=== PATIENT | female | born 1945 | race Caucasian/White ===

== ENCOUNTER 2018-09-15 10:00 | Inpatient (IN) ==
[2018-09-15] MEDS ORDERED: Sennosides/Docusate Sodium TABLET PO PRN (16:26)
[2018-09-15] MEDS ORDERED: traMADol 50 MG TABLET PO PRN ×2 (16:32)
[2018-09-15] MEDS: Ondansetron ODT 4 MG TAB.RAPDIS SL PRN (17:59)
[2018-09-15] MEDS: Aspirin 81 MG TAB.CHEW PO SCH (20:49)
[2018-09-15] MEDS: Famotidine 20 MG TABLET PO SCH (20:49)
[2018-09-16 06:11] LABS: Basophils % 0.2 %; Eosinophils # 0.1 K/mcL (0.0-0.6); Eosinophils % 0.5 %; Hematocrit 39.5 % (35.3-44.9); Immature Granulocytes % 0.4 % (0-4); Lymphocytes # 1.4 K/mcL (0.6-4.6); Lymphocytes % 12.7 %; Mean Corpuscular HGB Conc 32.9 g/dL (31.6-35.5); Mean Corpuscular Hemoglobin 31.2 pg (28.0-33.3); Mean Corpuscular Volume 94.7 fL (83.0-100.0); Mean Platelet Volume 12.8 fL (9.4-12.4); Monocytes # 0.9 K/mcL (0.0-1.3); Monocytes % 8.6 %; Neutrophils # 8.3 K/mcL (1.6-8.9); Platelet Count 176 K/mcL (140-400); Red Blood Count 4.17 M/mcL (3.82-4.97); Red Cell Distribution Width 14.3 % (11.5-14.5); Segmented Neutrophils % 77.6 %; White Blood Count 10.7 K/mcL (4.3-11.1)
[2018-09-16 06:22] LABS: INR 1.1; Prothrombin Time 12.2 Seconds (9.4-12.1)
[2018-09-16 06:25] LABS: Activated Partial Thrombo Time 31.3 Seconds (26.0-36.0)
[2018-09-16 06:34] LABS: Calcium 8.5 mg/dL (8.6-10.3)
[2018-09-16] MEDS: Cholecalciferol (D-3) 1,000 UNIT (25MCG) TABLET PO SCH (08:52)
[2018-09-16] MEDS: Lactobacillus 1 EACH CAP.SPRINK PO SCH (08:52)
[2018-09-16] MEDS: Multivit/Ca/Min/Fe/FA 1 TAB TABLET PO SCH (08:53)
[2018-09-16] MEDS: (Omega-3/Dha/Epa/Fish Oil [Fish Oil 1,000 Mg Softgel]) PO SCH (08:56)
[2018-09-16] MEDS: Aspirin 81 MG TAB.CHEW PO SCH ×2 (08:56→20:31)
[2018-09-16] MEDS ORDERED: Lisinopril 20 MG TABLET PO SCH (09:00)
--- NOTE | 2018-09-16 11:48 | Internal Med History&Physical ---
Date of Encounter: 09/16/18 Time of Encounter: 10:30 Assessment and Plan (1) Status post total right knee replacement Current visit: Yes Status: Acute She will be treated with therapy and follow with probable early discharge, depending on her progress. We will use Lovenox for DVT prophylaxis. (2) Hypertension Current visit: No Status: Acute Controlled with current regimen. Will follow. Qualifiers: Hypertension type: essential hypertension Qualified Code(s): I10 - Essential (primary) hypertension (3) Hypothyroidism Current visit: No Status: Acute Clinically euthyroid. We will continue current regimen. 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 Qualifiers: Hyperlipidemia type: unspecified Qualified Code(s): E78.5 - Hyperlipidemia, unspecified (5) Constipation Current visit: No Status: Acute This apparently resolved with milk of magnesia and will continue MiraLAX as needed. He has also been placed on senna. Qualifiers: Constipation type: slow transit constipation Qualified Code(s): K59.01 - Slow transit constipation (6) Nausea Current visit: Yes Status: Acute We will follow and she has Ultram available but prefers to use only Tylenol. She also has as needed ondansetron. (7) CVA (cerebral vascular accident) Current visit: No Status: Acute Apparently all resolved and patient has no residual. Qualifiers: CVA mechanism: occlusion Precerebral and cerebral artery: anterior cerebral artery Laterality of affected vessel: left Qualified Code(s): I63.522 - Cerebral infarction due to unspecified occlusion or stenosis of left anterior cerebral artery Internal Medicine - H&P: HPI Admitted From: Hospital to Hospital Transfer Plans for Post Hospital Care: Home History of present illness: Ms. Aguirre is a 73 year old female with history of right total knee replacement [address] Pelayo. She did well postoperatively with the exception of nausea and vomiting. She states this was from opiates which she frequently gets after anesthesia or after surgery. She has been doing fine on Tylenol feels that her pain at worst is 4 out of 10. She also had constipation which resolved yesterday. She denies fevers, chills, sweats, dizziness, lightheadedness, etc. Medical history reviewed and no acute issues. Includes history of left CVA with right hemiparesis 2017 but this all resolved. She also has hypertension, GERD, hyperlipidemia, hypertension, hypothyroidism. Past Med Surg Social Fam HX - Past Medical History Medical history: arthritis, CVA, GERD, hyperlipidemia, hypertension, thyroid disease Psychiatric history: no psych history - Past Surgical History Surgical History: hysterectomy, orthopedic, other, other Additional surgical history: wrist. cyst removal - Social History Smoking Status: Never smoker Smokeless Tobacco Status: No Alcohol use: none Drug use: none - Family History Mother Hx Family Cardiac Disorders: Yes (htn) Hx Family Neurologic Disorders: Yes (alzheimers disease) Father Hx Family Cardiac Disorders: Yes (HTN) Hx Family Neurologic Disorders: Yes (Alzheimers disease) Internal Medicine - H&P: Meds Aspirin [Lo-Dose Aspirin EC] 81 mg PO DAILY 03/01/17 [History] Levothyroxine [Synthroid] 50 mcg PO DAILY 03/01/17 [History] Lisinopril [Zestril] 20 mg PO DAILY 03/01/17 [History] Mv,Fe,Min/Lutein [A Thru Z [employer] Tablet] 1 tab PO DAILY 03/01/17 [History] Nadolol [Corgard] 40 mg PO DAILY 03/01/17 [History] [place]-3/Dha/Epa/Fish Oil [Fish Oil 1,000 mg Softgel] 1 cap PO DAILY 03/01/17 [History] Ranitidine HCl [Zantac] 150 mg PO HS 03/01/17 [History] Atorvastatin [Lipitor] 40 mg PO HS #30 tablet 03/04/17 [Rx] Sennosides/Docusate Sodium [Senna Plus] 1 each PO DAILY PRN #30 tablet 03/04/17 [Rx] Ibuprofen [Motrin] 800 mg PO Q8HR #30 tablet 11/16/17 [Rx] Magnesium 11/16/17 [History] Cholecalciferol (D-3) [Vitamin D] 1,000 unit PO DAILY 09/15/18 [History] L.acidoph,Paracasei, B.lactis [Probiotic] 1 each PO DAILY 09/15/18 [History] Multivit-Min/FA/Lutein/Zeaxant [Macular Vitamin Tablet] 1 each PO DAILY 09/15/18 [History] Non-Formulary Medication 1 each PO DAILY 09/15/18 [History] Allergy/AdvReac Type Severity Reaction Status Date / Time codeine Allergy See Verified 01/27/18 16:57 Comments All Systems PM: A 10-system review of systems was performed and is negative for pertinent findings except as documented above in the HPI. Review of systems: Patient has no complaint of chest discomfort, dyspnea, orthopnea, breathing problems, palpitations, nausea or vomiting, constipation or diarrhea, other changes in bowel habits, heartburn, difficulty with urination, kidney problems or kidney stones, fevers chills or sweats, rash or itching, seizures, headache or lightheadedness, heat or cold intolerance, blood problems or anemia, or other new complaints, except as mentioned above. Review of systems is otherwise negative. - Constitutional Vitals: Temp Pulse Resp BP Pulse Ox 98.6 F 80 16 94/69 96 09/16/18 08:00 09/16/18 08:00 09/16/18 08:00 09/16/18 08:00 09/16/18 08:00 Exam: Examination: (Except as mentioned above): General: In no apparent distress, alert and oriented 3. Head: Atraumatic and normocephalic. Eyes: Extraocular muscles are intact, pupils equal round and reactive to light and accommodation. Sclerae anicteric. Ears: External ears are normal to inspection and hearing is grossly normal. Nose: Patent without lesion noted. Mouth: No intraoral lesions seen. Dentition is unremarkable. Neck: Supple with trachea midline. There is no thyromegaly or adenopathy and carotids are 2+ without bruit heard. Respiratory: No use of accessory muscles. Lungs are clear throughout. Normal airflow. Cardiovascular: Regular rate and rhythm without murmur appreciated. Abdomen: Bowel sounds are normal. No hepatosplenomegaly masses or tenderness. Obese and therefore difficult to palpate deeply. Extremities: No cyanosis clubbing or significant edema. She has mild edema of the right lower extremity from the knee downward but nearly none at foot. There is no cord or calf tenderness. Neurological: A and O 3. Cranial nerves II through XII are intact. No focal deficits and no abnormal movements or postures. Skin: Warm and non-diaphoretic with no lesions noted. Breasts, pelvic and rectal: Not examined. Internal Med - H&P Results - Labs CBC & Chem 7: 09/16/18 05:35 09/16/18 05:35 Labs: Short CBC 09/16/18 Range/Units 05:35 WBC 10.7 (4.3-11.1) K/mcL Hgb 13.0 (11.5-15.4) g/dL Hct 39.5 (35.3-44.9) % Plt Count 176 (140-400) K/mcL Neutrophils # 8.3 (1.6-8.9) K/mcL BMP 09/16/18 05:35 Sodium 133 L Potassium 4.0 Chloride 98 Carbon Dioxide 29 BUN 27 H Creatinine 1.24 H Glucose 113 H Calcium 8.5 L
[2018-09-16] MEDS: *HR* Enoxaparin 30 MG/0.3 ML SYRINGE SQ SCH (12:58)
[2018-09-16] MEDS: Famotidine 20 MG TABLET PO SCH (20:32)
[2018-09-17 05:30] LABS: Basophils % 0.3 %; Eosinophils # 0.3 K/mcL (0.0-0.6); Eosinophils % 3.3 %; Hematocrit 35.9 % (35.3-44.9); Hemoglobin 11.9 g/dL (11.5-15.4); Immature Granulocytes % 1.3 % (0-4); Lymphocytes # 1.5 K/mcL (0.6-4.6); Lymphocytes % 14.5 %; Mean Corpuscular HGB Conc 33.1 g/dL (31.6-35.5); Mean Corpuscular Hemoglobin 31.2 pg (28.0-33.3); Mean Platelet Volume 12.2 fL (9.4-12.4); Monocytes # 1.2 K/mcL (0.0-1.3); Monocytes % 11.2 %; Neutrophils # 7.2 K/mcL (1.6-8.9); Platelet Count 195 K/mcL (140-400); Red Blood Count 3.82 M/mcL (3.82-4.97); Red Cell Distribution Width 14.3 % (11.5-14.5); Segmented Neutrophils % 69.4 %; White Blood Count 10.3 K/mcL (4.3-11.1)
[2018-09-17 05:45] LABS: Calcium 8.5 mg/dL (8.6-10.3); Potassium 3.6 mEq/L (3.5-5.1)
[2018-09-17 05:48] LABS: Magnesium 2.4 mg/dL (1.6-2.6)
[2018-09-17 05:59] LABS: Thyroid Stimulating Hormone 5.574 mcIU/mL (0.340-5.600)
[2018-09-17] MEDS: Ondansetron ODT 4 MG TAB.RAPDIS SL PRN (07:41)
[2018-09-17] MEDS: Aspirin 81 MG TAB.CHEW PO SCH ×2 (08:28→20:20)
[2018-09-17] MEDS: Lactobacillus 1 EACH CAP.SPRINK PO SCH (08:28)
[2018-09-17] MEDS: Multivit/Ca/Min/Fe/FA 1 TAB TABLET PO SCH (08:28)
[2018-09-17] MEDS: Lisinopril 20 MG TABLET PO SCH (08:28)
[2018-09-17] MEDS: Cholecalciferol (D-3) 1,000 UNIT (25MCG) TABLET PO SCH (08:28)
[2018-09-17] MEDS: *HR* Enoxaparin 30 MG/0.3 ML SYRINGE SQ SCH (08:28)
[2018-09-17] MEDS: (Omega-3/Dha/Epa/Fish Oil [Fish Oil 1,000 Mg Softgel]) PO SCH (08:30)
--- NOTE | 2018-09-17 15:07 | Internal Med Progress Note ---
Date of Encounter: 09/17/18 Time of Encounter: 15:07 - Assessment and plan (1) Status post total right knee replacement Current Visit: Yes Status: Acute Assessment and plan: She is continuing to do well. Overall, improvement in terms of symptoms. She will therapies after the holiday weekend. (2) Hypertension Current Visit: No Status: Acute Assessment and plan: Controlled and will continue current regimen. Qualifiers: Hypertension type: essential hypertension Qualified Code(s): I10 - Essential (primary) hypertension (3) Hypothyroidism Current Visit: No Status: Acute Assessment and plan: Clinically stable. 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 Qualifiers: Hyperlipidemia type: unspecified Qualified Code(s): E78.5 - Hyperlipidemia, unspecified (5) Constipation Current Visit: No Status: Acute Assessment and plan: Responding to laxatives, as above. Qualifiers: Constipation type: slow transit constipation Qualified Code(s): K59.01 - Slow transit constipation (6) Nausea Current Visit: Yes Status: Acute Assessment and plan: Improving but persistent. (7) CVA (cerebral vascular accident) Current Visit: No Status: Acute Assessment and plan: No new residual. Qualifiers: CVA mechanism: occlusion Precerebral and cerebral artery: anterior cerebral artery Laterality of affected vessel: left Qualified Code(s): I63.522 - Cerebral infarction due to unspecified occlusion or stenosis of left anterior cerebral artery - Subjective Interval history: Patient had some dizziness this morning but no fall or other localizing signs. She had nausea associated but this resolved with time. Vital signs except. She continues to have bowel problems this is improving, per nursing. She had no bowel movement in a laxative made her have loose stools. Patient has no complaint of chest discomfort, dyspnea, orthopnea, palpitations, nausea or vomiting, constipation or diarrhea, other changes in bowel habits, difficulty with urination, rash or itching, or other new complaints, except as mentioned above. Review of systems is otherwise negative. I discussed management of patient's care with nursing staff. - Constitutional Vitals: Temp Pulse Resp BP Pulse Ox 97.7 F 63 16 143/81 97 09/17/18 08:55 09/17/18 08:55 09/17/18 08:55 09/17/18 08:55 09/17/18 08:55 Exam: Examination: (Except as mentioned above): General: In no apparent distress. Alert and oriented 3. Nondiaphoretic. Head: Atraumatic and normocephalic. Respiratory: No use of accessory muscles. Lungs are clear throughout. Normal airflow. Cardiovascular: Regular rate and rhythm without murmur appreciated. Abdomen: Bowel sounds are normal. No hepatosplenomegaly mass or tenderness appreciated. Obese and therefore difficult to palpate deeply. Extremities: No cyanosis clubbing or edema. Skin: Warm and non-diaphoretic with no new lesions noted. Internal Medicine: Result - Labs CBC & Chem 7: 09/17/18 05:00 09/17/18 05:00 Labs: Short CBC 09/17/18 Range/Units 05:00 WBC 10.3 (4.3-11.1) K/mcL Hgb 11.9 (11.5-15.4) g/dL Hct 35.9 (35.3-44.9) % Plt Count 195 (140-400) K/mcL Neutrophils # 7.2 (1.6-8.9) K/mcL BMP 09/17/18 05:00 Sodium 132 L Potassium 3.6 Chloride 100 Carbon Dioxide 27 BUN 30 H Creatinine 1.13 Glucose 98 Calcium 8.5 L - ABG Interpretation ABG results: PT/INR, D-dimer PT 12.2 Seconds (9.4-12.1) H 09/16/18 05:35 Consult Discharge Plan - Plan Referrals: Uyen Rodriguez CNP [Primary Care Provider] -
[2018-09-17] MEDS: Famotidine 20 MG TABLET PO SCH (20:20)
[2018-09-18] MEDS: (Omega-3/Dha/Epa/Fish Oil [Fish Oil 1,000 Mg Softgel]) PO SCH (09:07)
[2018-09-18] MEDS: Lactobacillus 1 EACH CAP.SPRINK PO SCH (09:08)
[2018-09-18] MEDS: *HR* Enoxaparin 40 MG/0.4 ML SYRINGE SQ SCH (09:08)
[2018-09-18] MEDS: Lisinopril 20 MG TABLET PO SCH (09:09)
[2018-09-18] MEDS: Cholecalciferol (D-3) 1,000 UNIT (25MCG) TABLET PO SCH (09:09)
[2018-09-18] MEDS: Aspirin 81 MG TAB.CHEW PO SCH ×2 (09:09→20:37)
[2018-09-18] MEDS: Multivit/Ca/Min/Fe/FA 1 TAB TABLET PO SCH (09:09)
--- NOTE | 2018-09-18 12:17 | Internal Med Progress Note ---
Date of Encounter: 09/18/18 Time of Encounter: 12:15 - Assessment and plan (1) Status post total right knee replacement Current Visit: Yes Status: Acute Assessment and plan: We will continue as planned with therapies to resume tomorrow. (2) Hypertension Current Visit: No Status: Acute Assessment and plan: Control was adequate. We will continue current regimen. Qualifiers: Hypertension type: essential hypertension Qualified Code(s): I10 - Essential (primary) hypertension (3) Hypothyroidism Current Visit: No Status: Acute Assessment and plan: Clinically euthyroid on replacement. 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 Qualifiers: Constipation type: slow transit constipation Qualified Code(s): K59.01 - Slow transit constipation (6) Nausea Current Visit: Yes Status: Acute Assessment and plan: Improving. (7) CVA (cerebral vascular accident) Current Visit: No Status: Acute Assessment and plan: Remote without signs or symptoms. Qualifiers: CVA mechanism: occlusion Precerebral and cerebral artery: anterior cerebral artery Laterality of affected vessel: left Qualified Code(s): I63.522 - Cerebral infarction due to unspecified occlusion or stenosis of left anterior cerebral artery - Subjective Interval history: Patient is without problems except she has "still not had a bowel movement." She states that she has white liquid and when we discussed, she feels that she still is to have a bowel movement. I offered a fleets enema but she declined, at this time. Patient had an episode of falling or slightly last night. She had no injury and is doing fine, otherwise. She has minimal nausea. Patient has no complaint of chest discomfort, dyspnea, orthopnea, palpitations, nausea or vomiting, constipation or diarrhea, other changes in bowel habits, difficulty with urination, rash or itching, or other new complaints, except as mentioned above. Review of systems is otherwise negative. I discussed management of patient's care with nursing staff. - Constitutional Vitals: Temp Pulse Resp BP Pulse Ox 97.6 F 70 16 118/76 97 09/18/18 07:11 09/18/18 07:11 09/18/18 07:11 09/18/18 07:11 09/18/18 07:11 Exam: Examination: (Except as mentioned above): General: In no apparent distress. Alert and oriented 3. Nondiaphoretic. Head: Atraumatic and normocephalic. Respiratory: No use of accessory muscles. Lungs are clear throughout. Normal airflow. Cardiovascular: Regular rate and rhythm without murmur appreciated. Abdomen: Bowel sounds are normal. No hepatosplenomegaly mass or tenderness appreciated. Obese and therefore difficult to palpate deeply. Patient is examined upright in chair and this also limits exam. Extremities: No cyanosis clubbing or edema. Skin: Warm and non-diaphoretic with no new lesions noted. Internal Medicine: Result - Labs CBC & Chem 7: 09/17/18 05:00 09/17/18 05:00 - ABG Interpretation ABG results: PT/INR, D-dimer PT 12.2 Seconds (9.4-12.1) H 09/16/18 05:35 Consult Discharge Plan - Plan Referrals: Michael,Uyen Coley CNP [Primary Care Provider] -
[2018-09-18] MEDS: Famotidine 20 MG TABLET PO SCH (20:37)
[2018-09-19] MEDS: Aspirin 81 MG TAB.CHEW PO SCH ×2 (08:03→21:46)
[2018-09-19] MEDS: Lisinopril 20 MG TABLET PO SCH (08:03)
[2018-09-19] MEDS: *HR* Enoxaparin 40 MG/0.4 ML SYRINGE SQ SCH (08:03)
[2018-09-19] MEDS: Cholecalciferol (D-3) 1,000 UNIT (25MCG) TABLET PO SCH (08:03)
[2018-09-19] MEDS: Lactobacillus 1 EACH CAP.SPRINK PO SCH (08:03)
[2018-09-19] MEDS: Multivit/Ca/Min/Fe/FA 1 TAB TABLET PO SCH (08:03)
[2018-09-19] MEDS: (Omega-3/Dha/Epa/Fish Oil [Fish Oil 1,000 Mg Softgel]) PO SCH (08:04)
--- NOTE | 2018-09-19 11:20 | Internal Med Progress Note ---
Date of Encounter: 09/19/18 Time of Encounter: 11:18 - Assessment and plan (1) Status post total right knee replacement Current Visit: Yes Status: Acute Assessment and plan: No acute issues. Surgical incision to right knee appears healthy. Patient with moderate pain, which she states is tolerable with current medications. Patient trying to avoid any use of narcotics at this time, stating that she does not tolerate them well. We will continue with continuous icing. We will continue with physical therapy which she states is progressing well. (2) CVA (cerebral vascular accident) Current Visit: Yes Status: Acute Assessment and plan: No acute issues. Patient shows no neurological deficits on exam. Remote CVA. We will continue with physical therapy and current plan of care. Qualifiers: CVA mechanism: occlusion Precerebral and cerebral artery: anterior cerebral artery Laterality of affected vessel: left Qualified Code(s): I63.522 - Cerebral infarction due to unspecified occlusion or stenosis of left anterior cerebral artery (3) Nausea Current Visit: Yes Status: Acute Assessment and plan: Patient currently denies any nausea. Continue with when necessary coverage. (4) Constipation Current Visit: No Status: Acute Assessment and plan: Patient states she continues with constipation. Patient has resisted taking several laxatives, stating that when she was at her previous hospitalization that she had taken milk of magnesia with an apple juice and had developed diarrhea. Patient has had several days of no BM at this time. We will give patient a half a bottle of mag citrate and monitor results. Qualifiers: Constipation type: slow transit constipation Qualified Code(s): K59.01 - Slow transit constipation - Time Spent With Patient less than 15 minutes - Subjective Interval history: Patient appears relaxed and currently states that she has slight pain to her right knee surgical site, which she states is tolerable with current medications. Patient states she is unable to take most narcotics and currently just prefers Tylenol, which she feels is effective. Patient with continuous icing also in use. States that she feels physical therapy is progressing well. - Constitutional Vitals: Temp Pulse Resp BP Pulse Ox 98.1 F 79 18 140/88 96 09/19/18 07:36 09/19/18 07:36 09/19/18 07:36 09/19/18 07:36 09/19/18 07:36 General appearance: Present: A&O X 3, pleasant - Head Head exam: Present: atraumatic, normocephalic - Eye Eye exam: Present: PERRL, conjuntiva pink, sclera anicteric Pupils: Present: PERRL - Neck Neck exam general surgery: Present: supple, trachea midline. Absent: lymphadenopathy - Respiratory Respiratory exam: Present: CTAB. Absent: accessory muscle use, rales, rhonchi, wheezes - Cardiovascular Cardiovascular exam: Present: RRR, +S1, +S2. Absent: diastolic murmur, gallop, rubs, systolic murmur - GI/Abdominal GI/Abdominal exam: Present: normal bowel sounds, soft, no peritoneal signs. Absent: distended, tenderness - Extremities Exam Extremities exam: Present: warm, radial pulses palpable and symmetrical. Absent: calf tenderness, cyanotic, pedal edema Additional comments: Right knee surgical incision appears healthy with no ecchymosis or erythema. - Neurological Exam Neurological exam: Present: CN II-XII intact, oriented X3, no focal deficits. Absent: pronater drift, facial droop, speech deficit - Skin Skin exam: Present: dry, intact Internal Medicine: Result - Labs CBC & Chem 7: 09/17/18 05:00 09/17/18 05:00 - ABG Interpretation ABG results: PT/INR, D-dimer PT 12.2 Seconds (9.4-12.1) H 09/16/18 05:35 Consult Discharge Plan - Plan Referrals: Uyen Rodriguez CNP [Primary Care Provider] -
[2018-09-19] MEDS: Famotidine 20 MG TABLET PO SCH (21:46)
[2018-09-20] MEDS: Aspirin 81 MG TAB.CHEW PO SCH ×2 (08:53→21:33)
[2018-09-20] MEDS: Lactobacillus 1 EACH CAP.SPRINK PO SCH (08:55)
[2018-09-20] MEDS: Multivit/Ca/Min/Fe/FA 1 TAB TABLET PO SCH (08:55)
[2018-09-20] MEDS: Cholecalciferol (D-3) 1,000 UNIT (25MCG) TABLET PO SCH (08:55)
[2018-09-20] MEDS: *HR* Enoxaparin 40 MG/0.4 ML SYRINGE SQ SCH (08:56)
[2018-09-20] MEDS: Lisinopril 20 MG TABLET PO SCH (08:58)
[2018-09-20] MEDS: (Omega-3/Dha/Epa/Fish Oil [Fish Oil 1,000 Mg Softgel]) PO SCH (08:59)
--- NOTE | 2018-09-20 13:40 | Internal Med Progress Note ---
Date of Encounter: 09/20/18 Time of Encounter: 10:50 - Assessment and plan (1) Status post total right knee replacement Current Visit: Yes Status: Acute Assessment and plan: Patient is continuing to progress well (2) Hypertension Current Visit: No Status: Acute Assessment and plan: Clinically stable so will continue current regimen. Qualifiers: Hypertension type: essential hypertension Qualified Code(s): I10 - Essential (primary) hypertension (3) Hypothyroidism Current Visit: No Status: Acute Assessment and plan: Clinically euthyroid. 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 Qualifiers: Hyperlipidemia type: unspecified Qualified Code(s): E78.5 - Hyperlipidemia, unspecified (5) Constipation Current Visit: No Status: Acute Assessment and plan: Improved after magnesium citrate. Qualifiers: Constipation type: slow transit constipation Qualified Code(s): K59.01 - Slow transit constipation (6) Nausea Current Visit: Yes Status: Acute Assessment and plan: Improving. (7) CVA (cerebral vascular accident) Current Visit: Yes Status: Acute Assessment and plan: Remote without any new deficits. Qualifiers: CVA mechanism: occlusion Precerebral and cerebral artery: anterior cerebral artery Laterality of affected vessel: left Qualified Code(s): I63.522 - Cerebral infarction due to unspecified occlusion or stenosis of left anterior cerebral artery - Subjective Interval history: Patient is without complaint. She had a large bowel movement on multiple occasions. She is progressing well with therapy. Patient has no complaint of chest discomfort, dyspnea, orthopnea, palpitations, nausea or vomiting, constipation or diarrhea, other changes in bowel habits, difficulty with urination, rash or itching, or other new complaints, except as mentioned above. Review of systems is otherwise negative. I discussed management of patient's care with nursing staff. - Constitutional Vitals: Temp Pulse Resp BP Pulse Ox 97.6 F 78 18 107/68 100 09/20/18 09:07 09/20/18 09:07 09/20/18 09:07 09/20/18 09:07 09/20/18 09:07 Exam: Examination: (Except as mentioned above): General: In no apparent distress. Alert and oriented 3. Nondiaphoretic. Head: Atraumatic and normocephalic. Respiratory: No use of accessory muscles. Lungs are clear throughout. Normal airflow. Cardiovascular: Regular rate and rhythm without murmur appreciated. Abdomen: Bowel sounds are normal. No hepatosplenomegaly mass or tenderness appreciated. Obese and therefore difficult to palpate deeply. Extremities: No cyanosis clubbing or edema. Skin: Warm and non-diaphoretic with no new lesions noted. Internal Medicine: Result - Labs CBC & Chem 7: 09/17/18 05:00 09/17/18 05:00 - ABG Interpretation ABG results: PT/INR, D-dimer PT 12.2 Seconds (9.4-12.1) H 09/16/18 05:35 Consult Discharge Plan - Plan Referrals: Uyen Rodriguez CNP [Primary Care Provider] -
[2018-09-20] MEDS: Famotidine 20 MG TABLET PO SCH (21:33)
[2018-09-21 07:34] VITALS: BP 129/83
[2018-09-21] MEDS: Aspirin 81 MG TAB.CHEW PO SCH (08:55)
[2018-09-21] MEDS: Multivit/Ca/Min/Fe/FA 1 TAB TABLET PO SCH (08:56)
[2018-09-21] MEDS: (Omega-3/Dha/Epa/Fish Oil [Fish Oil 1,000 Mg Softgel]) PO SCH (08:56)
[2018-09-21] MEDS: *HR* Enoxaparin 40 MG/0.4 ML SYRINGE SQ SCH (08:56)
[2018-09-21] MEDS: Lactobacillus 1 EACH CAP.SPRINK PO SCH (08:56)
[2018-09-21] MEDS: Lisinopril 20 MG TABLET PO SCH (08:56)
[2018-09-21] MEDS: Cholecalciferol (D-3) 1,000 UNIT (25MCG) TABLET PO SCH (08:56)
--- NOTE | 2018-09-21 10:40 | Discharge Summary ---
Date of Encounter: 09/21/18 Time of Encounter: 10:35 - Discharge Diagnosis (1) Status post total right knee replacement Priority: Primary Status: Acute Comments: Right knee surgical incision appears healthy and intact. No edema noted. Patient continues with icing. Patient with history of intolerance to opiates, but states that her pain has been controlled with current nonnarcotic medication. Patient will continue her physical therapy as an outpatient here at [facility]. Patient being discharged with prescriptions from orthopedic surgeon for tramadol and is continuing on aspirin. Patient is continue follow-up with orthopedic surgeon and PCP after discharge (2) CVA (cerebral vascular accident) Priority: Secondary Status: Acute Comments: No acute issues are stated this facility. Patient shows no residual from previous CVA. Patient has continue follow-up with PCP and continue on her current medications. Qualifiers: CVA mechanism: occlusion Precerebral and cerebral artery: anterior cerebral artery Laterality of affected vessel: left Qualified Code(s): I63.522 - Cerebral infarction due to unspecified occlusion or stenosis of left anterior cerebral artery (3) Nausea Priority: Secondary Status: Acute Comments: Patient's nausea resolved soon after arrival to facility. No current issues. Patient is being discharged with a prescription for Zofran when necessary. Follow-up with PCP after discharge (4) Constipation Priority: Secondary Status: Acute Comments: Patient with history of constipation and did have some issues postoperatively. Patient currently has had recent BM and is being discharged on current medications to continue at home. Patient has a follow-up PCP. Qualifiers: Constipation type: slow transit constipation Qualified Code(s): K59.01 - Slow transit constipation Hospital course: Ms. Aguirre is a 73 year old female with a right total knee replacement last week by Dr. Pelayo. She did well postoperatively with the exception of nausea and vomiting. She states this was from opiates which she frequently experiences nausea after anesthesia or when taking opiates. She has been doing fine on Tylenol feels that her pain at worst is 4 out of 10. She had experienced constipation postoperatively which has resolved by discharge . She denies fevers, chills, sweats, dizziness, lightheadedness, etc. patient has participated in physical therapy and done well. Continues with continuous icing on her left knee. Patient is being discharged to home and is continue with physical therapy to outpatient services here at [facility]. Patient is a continue her follow-up with PCP and orthopedic surgeon. Patient is being discharged with a prescription for tramadol and Zofran. She is continue on aspirin. Medical history reviewed and no acute issues. Includes history of left CVA with right hemiparesis 2017 but this all resolved. She also has hypertension, GERD, hyperlipidemia, hypertension, hypothyroidism. Discharge discussed with: patient Time spent discussing smoking cessation with patient: 3 to 10 minutes - Time Spent with Patient Total time spent providing and/or coordinating discharge services: Time spent: Less than 30 minutes - Discharge Medications Prescriptions: No Action Mv,Fe,Min/Lutein [A Thru Z [employer]'s Tablet] 1 tab PO DAILY Nadolol [Corgard] 40 mg PO DAILY Aspirin [Lo-Dose Aspirin EC] 81 mg PO DAILY Ranitidine HCl [Zantac] 150 mg PO HS Lisinopril [Zestril] 20 mg PO DAILY Levothyroxine [Synthroid] 50 mcg PO DAILY Easley-3/Dha/Epa/Fish Oil [Fish Oil 1,000 mg Softgel] 1 cap PO DAILY Atorvastatin [Lipitor] 40 mg PO HS #30 tablet Sennosides/Docusate Sodium [Senna Plus] 1 each PO DAILY PRN #30 tablet PRN Reason: Constipation Magnesium Ibuprofen [Motrin] 800 mg PO Q8HR #30 tablet Cholecalciferol (D-3) [Vitamin D] 1,000 unit PO DAILY Non-Formulary Medication 1 each PO DAILY Multivit-Min/FA/Lutein/Zeaxant [Macular Vitamin Tablet] 1 each PO DAILY L.acidoph,Paracasei, B.lactis [Probiotic] 1 each PO DAILY Home Medications: Aspirin [Lo-Dose Aspirin EC] 81 mg PO DAILY 03/01/17 [History] Levothyroxine [Synthroid] 50 mcg PO DAILY 03/01/17 [History] Lisinopril [Zestril] 20 mg PO DAILY 03/01/17 [History] Mv,Fe,Min/Lutein [A Thru Z [employer]'s Tablet] 1 tab PO DAILY 03/01/17 [History] Nadolol [Corgard] 40 mg PO DAILY 03/01/17 [History] Easley-3/Dha/Epa/Fish Oil [Fish Oil 1,000 mg Softgel] 1 cap PO DAILY 03/01/17 [History] Ranitidine HCl [Zantac] 150 mg PO HS 03/01/17 [History] Atorvastatin [Lipitor] 40 mg PO HS #30 tablet 03/04/17 [Rx] Sennosides/Docusate Sodium [Senna Plus] 1 each PO DAILY PRN #30 tablet 03/04/17 [Rx] Ibuprofen [Motrin] 800 mg PO Q8HR #30 tablet 11/16/17 [Rx] Magnesium 11/16/17 [History] Cholecalciferol (D-3) [Vitamin D] 1,000 unit PO DAILY 09/15/18 [History] L.acidoph,Paracasei, B.lactis [Probiotic] 1 each PO DAILY 09/15/18 [History] Multivit-Min/FA/Lutein/Zeaxant [Macular Vitamin Tablet] 1 each PO DAILY 09/15/18 [History] Non-Formulary Medication 1 each PO DAILY 09/15/18 [History] Allergies/Adverse Reactions: Allergy/AdvReac Type Severity Reaction Status Date / Time codeine Allergy See Verified 01/27/18 16:57 Comments Date of admission: 09/15/18 14:43 Primary care physician: Uyen Rodriguez CNP Consults: 09/15/18 15:43 Consult to Occupational Therapy [CONS] Routine Comment: Evaluate, develop and implement POC Reason for Consult: s/p rtkr Does patient have active BEDREST order?: No Is patient medically & hemodynamically stable?: Yes Patient assessed for mobility or mobilized this visit?: Yes Consult to Physical Medicine/Rehab [CONS] Routine Reason for Consult: s/p rtkr Call Completed: Yes Consult to Physical Therapy [CONS] Routine Comment: Evaluate, develop and implement POC Reason for Consult: s/p rtkr Does patient have active BEDREST order?: No Is patient medically & hemodynamically stable?: Yes Patient assessed for mobility or mobilized this visit?: No Consult to Recreational Therapy [CONS] Routine Comment: Evaluate, develop and implement POC Consult to Cartridge Assembling Machine Adjuster [CONS] Routine Reason for SW Consult: s/p rtk, d/c planning Discharging clinician: Imani Avendano - Constitutional Vitals: Temp Pulse Resp BP Pulse Ox 98.0 F 66 16 129/83 98 09/21/18 07:33 09/21/18 07:33 09/21/18 07:33 09/21/18 07:33 09/21/18 07:33 General appearance: Present: A&O X 3, pleasant - Head Head exam: Present: atraumatic, normocephalic - Eye Eye exam: Present: PERRL, conjuntiva pink, sclera anicteric Pupils: Present: PERRL - Neck Neck exam general surgery: Present: supple, trachea midline. Absent: lymphadenopathy - Respiratory Respiratory exam: Present: CTAB. Absent: accessory muscle use, rales, rhonchi, wheezes - Cardiovascular Cardiovascular exam: Present: RRR, +S1, +S2. Absent: diastolic murmur, gallop, rubs, systolic murmur - GI/Abdominal GI/Abdominal exam: Present: normal bowel sounds, soft, no peritoneal signs. Absent: distended, tenderness - Extremities Exam Extremities exam: Present: warm, radial pulses palpable and symmetrical. Absent: calf tenderness, cyanotic, pedal edema Additional comments: Right knee surgical incision appears healthy and intact. Minimal amount of edema noted. - Neurological Exam Neurological exam: Present: CN II-XII intact, oriented X3, no focal deficits. Absent: pronater drift, facial droop, speech deficit - Skin Skin exam: Present: dry, intact - Patient Status Disposition: Home Health Service Condition: Good Functional capacity at discharge: uses cane/walker Overall status at discharge: patient is progressing back to baseline - Discharge Instructions Follow Up With: Uyen Rodriguez CNP [Primary Care Provider] - - Diet and Activity Activity: ambulate only with your walker, as per physical therapy, increase activity as tolerated Diet: advance to your usual diet, low fat, low cholesterol, low salt diet, regular diet
== END 2018-09-21 15:29 | disposition home health service (06) | DRG 561 ==
LOC: INPGRE 14:43